=== PATIENT | male | born 1975 | race Caucasian/White ===

== ENCOUNTER 2018-01-31 04:37 | Emergency (ER) | payer OTHER ==
[2018-01-31] MEDS ORDERED: NS 0.9% 1000 ML* 1,000 ML IV ONE (04:39)
[2018-01-31] MEDS ORDERED: Ondansetron ODT TAB* 4 MG PO ONE (04:49)
[2018-01-31] MEDS ORDERED: Morphine INJ* 10 MG/ML 1 ML CARPUJECT IV ONE (04:49)
[2018-01-31] MEDS ORDERED: Morphine VIAL* 4 MG/ML VIAL (1 ml vial) IV ONE ×2 (04:54→05:08)
[2018-01-31 05:20] LABS: ABS Basophils 0.1 10^3/ul (0-0.2); ABS Eosinophils 0.3 10^3/ul (0-0.6); ABS Monocytes 0.4 10^3/ul (0-0.8); ABS Neutrophils 3.9 10^3/ul (1.5-7.7); ABS Nucleated RBC 0 10^3/ul; Eosinophil % 4.7 % (0-6); Hematocrit 41 % (42-52); Hemoglobin 14.4 g/dl (14.0-18.0); Lymphocyte % 30.8 % (25-47); Mean Corpuscular HGB Conc 35 g/dl (31-36); Mean Corpuscular Hemoglobin 32 pg (27-31); Mean Corpuscular Volume 91 fL (80-94); Mean Platelet Volume 7.2 um3 (7.4-10.4); Nucleated Red Blood Cells % 0; Platelet Count 217 10^3/ul (150-450); Red Cell Distribution Width 14 % (10.5-15); White Blood Count 6.6 10^3/ul (3.5-10.8)
[2018-01-31] MEDS ORDERED: Ketorolac INJ* 30 MG/ML 1 ML VIAL IV PUSH ONE (05:27)
[2018-01-31] MEDS ORDERED: Tamsulosin CAP* 0.4 MG PO ONE ×2 (05:29→06:19)
[2018-01-31 05:35] LABS: Urine Appearance Cloudy; Urine Blood 3+ (Negative); Urine Color Yellow; Urine Ketones Negative (Negative); Urine Protein Negative (Negative); Urine Specific Gravity 1.017 (1.010-1.030); Urine Urobilinogen Negative (Negative)
[2018-01-31 05:36] LABS: EGFR Non-African American 88.3 (>60)
[2018-01-31] MEDS ORDERED: Metoclopramide IV* 5 MG/ML 2 ML VIAL ONE (05:49)
[2018-01-31] MEDS ORDERED: diPHENhydraMINE IV* 50 MG/ML 1 ml VIAL (BENADRYL) IV ONE (05:49)
[2018-01-31] MEDS ORDERED: Metoclopramide IV* 5 MG/ML 2 ML VIAL IV ONE (05:49)
[2018-01-31] MEDS ORDERED: diPHENhydraMINE IV* 50 MG/ML 1 ml VIAL (BENADRYL) ONE (05:49)
[2018-01-31] MEDS ORDERED: Lidocaine 2% (CARDIAC)* 20 MG/ML 5 ML SYRINGE (100 MG) INJ ONE (05:49)
[2018-01-31 07:02] VITALS: BP 130/83
--- NOTE | 2018-01-31 08:12 | RAD ---
Indication: Flank pain. CT of the abdomen and pelvis without oral or IV contrast administration. Coronal and sagittal reconstructed images were obtained. The lung bases demonstrate no pleural fluid, nodules or masses. Heart is of normal size without pericardial effusion. Liver is normal in size. No focal lesions or intrahepatic ductal dilatation is noted. The gallbladder demonstrates no calcified gallstones. No pericholecystic fluid or wall thickening is noted. The spleen is normal in size. No adrenal masses are noted. No retroperitoneal adenopathy is noted. No dilated bowel are noted. The left kidney demonstrates mild hydronephrosis and hydroureter. There is a calculus at the left ureterovesicular junction measuring 3 mm. Right kidney shows no hydronephrosis or hydroureter. The appendix is within normal limits. CT of the pelvis demonstrates no retroperitoneal or pelvic lymphadenopathy. No free fluid is identified. The uterus and ovaries are unremarkable. Prostate and several vesicles are unremarkable. IMPRESSION: Left hydronephrosis and hydroureter with 3 mm calculi at the left ureterovesicular junction. No hernias are identified.
--- NOTE | 2018-02-10 14:40 | ED ---
Gianni Rodas Jennifer, scribed for Dion Mujica MD on 01/31/18 at 0450 . GI/ HPI - HPI Summary HPI Summary: The patient is a 42 year old male brought in by EMS for sudden onset left flank pain since one hour ago. He describes the pain is sharp and radiated to his back. It was a 10/10 before but is now a 7/10 after being given pain medication in the ambulance. Patient additionally complains of nausea, vomiting. He denies dysuria. - History of Current Complaint Chief Complaint: EDFlankPain Time Seen by Provider: 01/31/18 04:39 Stated Complaint: FLANK PAIN Hx Obtained From: Patient Onset/Duration: Started Hours Ago - 1 hour, Still Present Timing: Constant Severity: Severe Current Severity: Mild Pain Intensity: 7 Location of Pain: Flank - left Pain Characteristics: Sharp Pain Radiates to: Back Associated Signs and Symptoms: Positive: Other: - nausea, vomiting. NEG: dysuria Aggravating Factor(s): Nothing Alleviating Factor(s): Medication - Allergy/Home Medications Allergies/Adverse Reactions: Allergies Allergy/AdvReac Type Severity Reaction Status Date / Time No Known Allergies Allergy Verified 01/31/18 04:39 PMH/Surg Hx/FS Hx/Imm Hx Endocrine/Hematology History: Denies: Hx Diabetes Cardiovascular History: Reports: Hx Hypertension History: Denies: Hx Kidney Stones Infectious Disease History: No Infectious Disease History: Denies: Traveled Outside the [place] in Last 30 Days - Family History Known Family History: Negative: Other - denies fhx kidney stones - Social History Alcohol Use: None Substance Use Type: Reports: None Smoking Status (MU): Never Smoked Tobacco Review of Systems Positive: Vomiting, Nausea Positive: flank pain. Negative: dysuria All Other Systems Reviewed And Are Negative: Yes Physical Exam - Summary Physical Exam Summary: Appearance: Well appearing, no pain distress Skin: warm, dry, reflects adequate perfusion Head/face: normal Eyes: EOMI, FELICIA ENT: normal, moist mucous membranes Neck: supple, non-tender Respiratory: CTA, breath sounds present Cardiovascular: RRR, pulses symmetrical Abdomen: non-tender, soft, no cva tenderness Bowel Sounds: present Musculoskeletal: normal, strength/ROM intact Neuro: normal, sensory motor intact, A&Ox3 Triage Information Reviewed: Yes Vital Signs On Initial Exam: Initial Vitals Temp Pulse Resp BP Pulse Ox 97.9 F 52 18 134/93 99 01/31/18 04:38 01/31/18 04:38 01/31/18 04:38 01/31/18 04:38 01/31/18 04:38 Vital Signs Reviewed: Yes Diagnostics - Vital Signs Vital Signs Temp Pulse Resp BP Pulse Ox 01/31/18 04:40 50 100 01/31/18 04:38 97.9 F 52 18 134/93 99 - Laboratory Lab Results: Lab Results 01/31/18 01/31/18 01/31/18 Range/Units 05:09 05:09 05:10 WBC 6.6 (3.5-10.8) 10^3/ul RBC 4.50 (4.0-5.4) 10^6/ul Hgb 14.4 (14.0-18.0) g/dl Hct 41 L (42-52) % MCV 91 (80-94) fL MCH 32 H (27-31) pg MCHC 35 (31-36) g/dl RDW 14 (10.5-15) % Plt Count 217 (150-450) 10^3/ul MPV 7.2 L (7.4-10.4) um3 Neut % (Auto) 58.3 (38-83) % Lymph % (Auto) 30.8 (25-47) % Weber % (Auto) 5.4 (0-7) % Eos % (Auto) 4.7 (0-6) % Baso % (Auto) 0.8 (0-2) % Absolute Neuts (auto) 3.9 (1.5-7.7) 10^3/ul Absolute Lymphs (auto) 2.0 (1.0-4.8) 10^3/ul Absolute Monos (auto) 0.4 (0-0.8) 10^3/ul Absolute Eos (auto) 0.3 (0-0.6) 10^3/ul Absolute Basos (auto) 0.1 (0-0.2) 10^3/ul Absolute Nucleated RBC 0 10^3/ul Nucleated RBC % 0 Sodium 134 L (139-145) mmol/L Potassium 3.5 (3.5-5.0) mmol/L Chloride 101 (101-111) mmol/L Carbon Dioxide 24 (22-32) mmol/L Anion Gap 9 (2-11) mmol/L BUN 16 (6-24) mg/dL Creatinine 0.93 (0.67-1.17) mg/dL Est GFR ( Amer) 113.5 (>60) Est GFR (Non-Af Amer) 88.3 (>60) BUN/Creatinine Ratio 17.2 (8-20) Glucose 160 H (70-100) mg/dL Calcium 9.1 (8.6-10.3) mg/dL Urine Color Yellow Urine Appearance Cloudy Urine pH 5.0 (5-9) Ur Specific Vest 1.017 (1.010-1.030) Urine Protein Negative (Negative) Urine Ketones Negative (Negative) Urine Blood 3+ A (Negative) Urine Nitrate Negative (Negative) Urine Bilirubin Negative (Negative) Urine Urobilinogen Negative (Negative) Ur Leukocyte Esterase Negative (Negative) Urine WBC (Auto) Absent (Absent) Urine RBC (Auto) 3+(>10/hpf) A (Absent) Urine Bacteria Absent (Absent) Hyaline Casts Present A (Absent) Urine Sperm Present A (Absent) Urine Glucose Negative (Negative) Result Diagrams: 18 05:09 18 05:09 Lab Statement: Any lab studies that have been ordered have been reviewed, and results considered in the medical decision making process. - CT CT abdomen and pelvis CT Interpretation: Positive (See Comments) CT Interpretation Completed By: Radiologist Re-Evaluation - Re-Evaluation First Eval Re-Evaluation Time: 05:38 Change: Improved Second Eval Re-Evaluation Time: 06:35 Change: Improved - Patient presented initially and then deteriorated with increased pain and vomiting. He was given IV lidocaine and treated for his nausea with relief. GIGU Course/Dx - Course Course Of Treatment: Patient with classic renal colic who has small amount of blood in the urine and CT scan showing 3 mm distal UVJ stone. There is only mild [place]. He is treated for pain here, started on Flomax. Patient's pain was initially well controlled however he developed increased pain and vomiting. He was given another [place] Toradol however his pain continued. As such, a dose of IV lidocaine given over 15 minutes was given. This is given another dose of a little bit over 1 mg/kg. The patient improved significantly as able to sleep. - Diagnoses Differential Diagnoses - Male: Enterocolitis, Renal Calculi, Renal Colic, Urinary Tract Infection, Other - Diverticulitis Provider Diagnoses: Renal colic on left side, Ureterolithiasis, Acute vomiting Discharge - Sign-Out/Discharge Documenting (check all that apply): Discharge/Admit/Transfer - Discharge Plan Condition: Fair Disposition: HOME Prescriptions: Hydrocodone/Acetaminophen [Hydrocodone-Acetamin 5-325 mg] 1 each PO TID PRN #12 tablet MDD 3 PRN Reason: more severe pain Naproxen [Naproxen 500 mg tab] 500 mg PO BID #10 tablet. Ondansetron [Zofran Odt] 4 mg PO TID PRN #10 tab.rapdis PRN Reason: Nausea Tamsulosin HCl [Flomax] 0.4 mg PO DAILY #3 cap.er.24h Patient Education Materials: Kidney Stones (ED), How to Strain Your Urine (ED) Forms: *Work Release Referrals: Maxi Jain DO [Primary Care Provider] - Jewel Becerra MD [Medical Doctor] - Additional Instructions: Drink plenty of fluids. Strain urine and catch stone. This could be tested by your doctor. Return with uncontrolled pain, high fever, persistent vomiting, worse or other concerns. Call your doctor today to follow-up. - Billing Disposition and Condition Condition: FAIR Disposition: HOME The documentation as recorded by the [facility] Jennifer accurately reflects the service I personally performed and the decisions made by , Dion Mujica MD.
== END 2018-01-31 07:07 | disposition home or self-care (01) ==
LOC: ED 04:37
DX: N20.1 Calculus of ureter (principal); N13.30 Unspecified hydronephrosis; R11.10 Vomiting, unspecified; I10 Essential (primary) hypertension
CPT/HCPCS: 36415; 74176; 80048; 81003; 81015; 85025; 96360; 96374; 96375; 96376; 99285; A9270-GY; J1200; J1885; J2270; J2765

== ENCOUNTER 2019-09-07 23:17 | Emergency (ER) | payer OTHER ==
[2019-09-07 23:47] LABS: ABS Basophils 0.1 10^3/ul (0-0.2); ABS Eosinophils 0.1 10^3/ul (0-0.6); ABS Lymphocytes 2.3 10^3/ul (1.0-4.8); ABS Monocytes 0.7 10^3/ul (0-0.8); ABS Neutrophils 3.4 10^3/ul (1.5-7.7); Hematocrit 43 % (42-52); Hemoglobin 15.2 g/dL (14.0-18.0); Lymphocyte % 35.2 %; Mean Corpuscular HGB Conc 36 g/dL (31-36); Mean Corpuscular Hemoglobin 32 pg (27-31); Mean Corpuscular Volume 91 fL (80-94); Mean Platelet Volume 7.2 fL (7.4-10.4); Nucleated Red Blood Cells % 0.1; Platelet Count 280 10^3/uL (150-450); Red Blood Count 4.69 10^6 /uL (4.18-5.48); Red Cell Distribution Width 13 % (10-15); White Blood Count 6.5 10^3/uL (3.5-10.8)
[2019-09-07 23:51] LABS: INR 1.01 (0.82-1.09)
--- NOTE | 2019-09-07 23:55 | ED ---
HPI Chest Pain - HPI Summary HPI Summary: The patient is a 43 y/o M presenting to [facility] accompanied by with a chief complaint of intermittent episodes of chest tightness over the last four nights. He reports that at initial onset, he felt a dull tightness in the chest that resolved after a few minutes, and he went to bed but didnt sleep well. The next morning, he felt okay, but the pain returned and he had fast palpitations, which all resolved. Today, he had another episode of tightness and palpitations with a heart rate of about 100 bpm. Currently, he feels anxious described as crawling out of skin, and fatigue from not sleeping well last night. He is not experiencing the tightness now. He endorses lightheadedness but denies any nausea, diaphoresis, or SOB. He has chronic headaches secondary to weather changes. No recent environments changes with diet or stress. PMHx: HTN (no longer medicated), chronic shoulder pains. FHx: cardiac disease in father young age, NH in grandfather, sister likely secondary to weight. Nonsmoker, no EtOH, no substance use. Noted excessive caffeine use but not today. Medications reviewed. Allergies noted. - History of Current Complaint Chief Complaint: EDChestPainROMI Time Seen by Provider: 09/07/19 23:48 Hx Obtained From: Patient Onset/Duration: Started Days Ago Timing: Intermittent, Lasting Minutes Initial Severity: Moderate Current Severity: None Pain Intensity: 0 Pain Scale Used: 0-10 Numeric Chest Pain Location: Diffuse Chest Pain Radiates: No Character: Fast, Tightness Aggravating Factor(s): Nothing Alleviating Factor(s): Nothing Associated Signs and Symptoms: Positive: Chest Pain, Lightheadedness, Palpitations - fast, Other: - fatigue. Negative: Shortness of Breath, Diaphoresis, Nausea - Allergy/Home Medications Allergies/Adverse Reactions: Allergies Allergy/AdvReac Type Severity Reaction Status Date / Time No Known Allergies Allergy Verified 09/07/19 23:27 PMH/Surg Hx/FS Hx/Imm Hx Endocrine/Hematology History: Denies: Hx Diabetes Cardiovascular History: Reports: Hx Hypertension - no longer needs meds History: Reports: Other Problems/Disorders - chronic shoulder pains - Surgical History Surgical History: None Surgery Procedure, Year, and Place: none Infectious Disease History: No Infectious Disease History: Denies: Traveled Outside the [place] in Last 30 Days - Family History Known Family History: Positive: Cardiac Disease - father at young age, grandfather with NH, sister - Social History Alcohol Use: None Hx Substance Use: No Substance Use Type: Reports: None Hx Tobacco Use: No Smoking Status (MU): Never Smoked Tobacco Review of Systems Positive: Fatigue. Negative: Skin Diaphoresis Positive: Palpitations - fast, Chest Pain - diffuse tightness Negative: Shortness Of Breath Negative: Nausea Neurological: Other - lightheaded Positive: Anxious All Other Systems Reviewed And Are Negative: Yes Physical Exam - Summary Physical Exam Summary: Appearance: Well-appearing, Well-nourished, lying in bed comfortably Skin: Warm, dry, no obvious rash Eyes: sclera anicteric, no conjunctival pallor ENT: mucous membranes moist, pharynx appears normal Neck: Supple, nontender Respiratory: Clear to auscultation, no signs of respiratory distress Cardiovascular: Normal S1, S2. No murmurs. Normal distal pulses in tibial and radial bilaterally. Abdomen: Soft, nontender, normal active bowel sounds present Musculoskeletal: Normal, Strength/ROM Intact Neurological: A&Ox3, awake and alert, mentation is normal, speech is fluent and appropriate Psychiatric: affect is normal, does not appear anxious or depressed Triage Information Reviewed: Yes Vital Signs On Initial Exam: Initial Vitals Temp Pulse Resp BP Pulse Ox 98.4 F 86 12 163/89 100 09/07/19 23:25 09/07/19 23:25 09/07/19 23:25 09/07/19 23:25 09/07/19 23:25 Vital Signs Reviewed: Yes Procedures - Sedation Patient Received Moderate/Deep Sedation with Procedure: No Diagnostics - Vital Signs Vital Signs Temp Pulse Resp BP Pulse Ox 09/07/19 23:25 98.4 F 86 12 163/89 100 - Laboratory Lab Results: Lab Results 09/07/19 Range/Units 23:40 WBC 6.5 (3.5-10.8) 10^3/uL RBC 4.69 (4.18-5.48) 10^6 /uL Hgb 15.2 (14.0-18.0) g/dL Hct 43 (42-52) % MCV 91 (80-94) fL MCH 32 H (27-31) pg MCHC 36 (31-36) g/dL RDW 13 (10-15) % Plt Count 280 (150-450) 10^3/uL MPV 7.2 L (7.4-10.4) fL Neut % (Auto) 51.3 % Lymph % (Auto) 35.2 % Reeves % (Auto) 10.3 % Eos % (Auto) 2.0 % Baso % (Auto) 1.2 % Absolute Neuts (auto) 3.4 (1.5-7.7) 10^3/ul Absolute Lymphs (auto) 2.3 (1.0-4.8) 10^3/ul Absolute Monos (auto) 0.7 (0-0.8) 10^3/ul Absolute Eos (auto) 0.1 (0-0.6) 10^3/ul Absolute Basos (auto) 0.1 (0-0.2) 10^3/ul Absolute Nucleated RBC 0.0 10^3/ul Nucleated RBC % 0.1 Result Diagrams: 09/07/19 23:40 09/07/19 23:40 Lab Statement: Any lab studies that have been ordered have been reviewed, and results considered in the medical decision making process. - Radiology CXR Radiology Interpretation Completed By: ED Physician Summary of Radiographic Findings: No acute process. ED physician has reviewed and interpreted this imaging report. Pending official read. - EKG 2322 Cardiac Rate: NL - 76 bpm EKG Rhythm: Sinus Rhythm Summary of EKG Findings: NSR at 76 BPM, P waves, QRS complex, and T waves are within normal limits, T waves and intervals are normal, no ischemic changes. This is a normal EKG. ED physician has reviewed and interpreted this EKG. Chest Pain Course/Dx - Course Course Of Treatment: 43 y/o M presenting with intermittent episodes of chest tightness and fast palpitations for the last four days accompanied by anxiety, fatigue, and lightheadedness but no nausea, diaphoresis, or SOB. Cardiac disease in family with father at young age, NH in grandfather, sister with weight. Physical exam reveals no acute abnormalities. Blood work obtained to reveal no significant abnormality except for glucose of 138. First troponin of 0.00. Second troponin of 0.00. EKG at 2322 reveals NSR at 76 bpm, no ischemic changes. Chest x-ray, per my interpretation, is negative for acute findings. Patient is safe for discharge. He is advised to follow up with PCP for further workup as needed. Patient understands and agrees with plan. Dx chest pain. - Diagnoses Provider Diagnoses: Chest pain Discharge ED - Sign-Out/Discharge Documenting (check all that apply): Patient Departure - Patient will be discharged home. - Discharge Plan Condition: Good Disposition: HOME Patient Education Materials: Chest Pain (ED) Referrals: Maxi Jain DO [Primary Care Provider] - 1 Week Additional Instructions: We did not find anything worrisome on the testing we did tonight, no sign of a cardiac problem. If you continue to have symptoms, you should see your regular doctor who may order further testing on you if necessary. - Billing Disposition and Condition Condition: GOOD Disposition: Home - Attestation Statements Document Initiated by Martha: Yes Documenting Scribe: Jen Coats Provider For Whom Martha is Documenting (Include Credential): Dr. Georgi Butler MD Scribe Attestation: Jen Rodas scribed for Dr. Georgi Butler MD on 09/09/19 at 1022. Scribe Documentation Reviewed: Yes Provider Attestation: The documentation as recorded by the Jen villa accurately reflects the service I personally performed and the decisions made by me, Dr. Georgi Butler MD Status of Martha Document: Viewed
[2019-09-08 00:02] LABS: Albumin 4.5 g/dL (3.2-5.2); Albumin/Globulin Ratio 1.5 (1-3); BUN/Creatinine Ratio 25.3 (8-20); Calcium 9.2 mg/dL (8.6-10.3); EGFR African American 114.8 (>60); EGFR Non-African American 94.9 (>60); Potassium 3.9 mmol/L (3.5-5.0); Total Bilirubin 0.3 mg/dL (0.2-1.0); Total Protein 7.5 g/dL (6.4-8.9)
[2019-09-08 03:22] VITALS: BP 107/73
== END 2019-09-08 03:15 | disposition home or self-care (01) ==
LOC: ED 23:17
DX: R07.9 Chest pain, unspecified (principal); I10 Essential (primary) hypertension
CPT/HCPCS: 36415; 71046; 80053; 84484; 85025; 85610; 93005; 99283